=== PATIENT | male | born 1985 | race African-American/Black ===

== ENCOUNTER 2024-11-26 10:37 | Emergency (ER) | payer OTHER ==
[~2024-11-26] VITALS: Ht 188 cm; Wt 102.0 kg
[2024-11-26 12:03] VITALS: BP 141/77; PULSE 88; RESP 16; TEMP 98.7; O2SAT 98
--- NOTE | 2024-11-26 12:13 | ED.PDOC ---
Musculoskeletal HPI Comments 39 year old male presents for work injury No fall. Shuffled his feet on detergent and feels like he pulled a muscle happened 7 days ago presents for pain with ambulation Chief Complaint: Lower Extremity Time Seen by MD: 11:37 Reviewed Notes: Nurses Notes, Medications, Allergies Allergies: Coded Allergies: NO KNOWN ALLERGIES (Unverified , 11/26/24) Home Meds Active Scripts Methocarbamol (Methocarbamol) 500 Mg Tab, 500 MG PO Q8HP PRN for 10 Days, #30 TAB 0 Refills Prov:GAIL POWELL TESTING AND REGULATING TECHNICIAN 11/26/24 Naproxen (Naproxen) 500 Mg Tab, 500 MG PO BIDPC for 10 Days, #20 TAB 0 Refills Prov:GAIL POWELL TESTING AND REGULATING TECHNICIAN 11/26/24 Information Source: Patient Mode of Arrival: Ambulatory Past Medical History PAST MEDICAL HISTORY: Denies Surgical History: Denies all surgeries Family History Family History: Reviewed,noncontributory to illness Social History Smoker: Non-Smoker Alcohol: Occasionally Drugs: Marijuana Lives In: Home All Other Systems: Reviewed and Negative (Per HPI) Physical Exam General Appearance: No Apparent Distress, Normal HEENT: Normal ENT Inspection, Pharynx Normal, TMs Normal Neck: Full Range of Motion, Non-Tender, Normal, Normal Inspection Respiratory: Chest Non-Tender, Lungs Clear, No Accessory Muscle Use, No Respiratory Distress, Normal Breath Sounds Cardiovascular: No Edema, No JVD, No Murmur, No Gallop, Normal Peripheral Pulses, Regular Rate/Rhythm Breast Exam: Deferred Gastrointestinal: No Organomegaly, Non Tender, No Pulsatile Mass, Normal Bowel Sounds, Soft Genitalia: Deferred Pelvic: Deferred Rectal: Deferred Extremities: No calf tenderness, Normal capillary refill, Normal inspection, Normal range of motion, Non-tender, No pedal edema Musculoskeletal : Location: Right Extremity Location: Other (Right inguinal: No gross abnormality on inspection. No signs of a hernia. No signs of infection. No abscess formation) Apperance: Normal Neurologic: Alert, cell coverer II-XII nml as Tested, No Motor Deficits, Normal Affect, Normal Mood, No Sensory Deficits Cerebellar Function: Normal Reflexes: Normal Skin: Dry, Normal Color, Warm Lymphatic: No Adenopathy Was a procedure done? Was a procedure done?: No Differential Diagnosis EXT Differential Diagnosis: Sprain X-Ray, Labs, Meds, VS Vital Signs Date Time Temp Pulse Resp B/P (MAP) Pulse Ox O2 Delivery O2 Flow Rate FiO2 11/26/24 12:03 98.7 88 16 141/77 (98) 98 98.7 11/26/24 12:03 88 16 98 Room Air 11/26/24 11:07 98.7 88 16 141/77 (98) 98 X-Ray, Labs, Meds, VS Comment History and examination consistent of muscular injury Considered imaging but no indication at this time. Findings consistent with muscle pain Take IBU w/ food as needed for pain Muscle relaxer as needed Recommended heat therapy Reviewed RICE management Avoid heavy lifting or strenuous activity If no improvement advised patient to return to the emergency department for follow-up. Time of 1ST Reevaluation: 12:00 Reevaluation 1ST: Improved Patient Education/Counseling: Diagnosis, Treatment Family Education/Counseling: Diagnosis, Treatment Departure 1 Departure Time of Disposition: 12:14 Impression: Primary Impression: Strain of right inguinal muscle Qualified Codes: S39.013A - Strain of muscle, fascia and tendon of pelvis, initial encounter Disposition: HOME / SELF CARE / HOMELESS Condition: Stable e-Prescriptions Methocarbamol (Methocarbamol) 500 Mg Tab 500 MG PO Q8HP PRN for 10 Days, #30 TAB 0 Refills Prov: GAIL POWELL TESTING AND REGULATING TECHNICIAN 11/26/24 Naproxen (Naproxen) 500 Mg Tab 500 MG PO BIDPC for 10 Days, #20 TAB 0 Refills Prov: GAIL POWELL TESTING AND REGULATING TECHNICIAN 11/26/24 Critical Care Note Critical Care Time?: No Stability Stability form required: No Heart Score Heart Score: Heart Score Response (Comments) Value History N/A 0 EKG N/A 0 Age N/A 0 Risk Factors N/A 0 Troponin N/A 0 Total 0 GAIL POWELL TESTING AND REGULATING TECHNICIAN Nov 26, 2024 12:12
[2024-11-26] MEDS ORDERED: NAPR-746 PO (12:15)
[2024-11-26] MEDS ORDERED: METH-1181 PO (12:15)
== END 2024-11-26 12:18 | disposition home or self-care (01) ==
LOC: ER 10:37
DX: S39.011A Strain of muscle, fascia and tendon of abdomen, initial encounter (principal); X58.XXXA Exposure to other specified factors, initial encounter; Y93.89 Activity, other specified; Y92.89 Other specified places as the place of occurrence of the external cause; Y99.8 Other external cause status